=== PATIENT | female | born 1975 | race Caucasian/White ===

== ENCOUNTER 2018-05-20 13:12 | Emergency (ER) | payer OTHER | END 2018-05-20 15:27 | disposition home or self-care (01) | LOC: M ED 13:12 | DX: M54.12 Radiculopathy, cervical region (principal); G43.909 Migraine, unspecified, not intractable, without status migrainosus; F17.200 Nicotine dependence, unspecified, uncomplicated; Z88.5 Allergy status to narcotic agent | CPT/HCPCS: 99283 ==

== ENCOUNTER → 2020-04-20 | Outpatient (CLI) | payer OTHER ==
[~2020-04-20] MED LIST: CYCL-707 PO; E-Z-GAS II EFFERVESCENT PACKET (SODIUM BICARB./CITRIC ACID/SIMETHICONE) As Ordered ONE; E-Z-HD 98% w/w 340GM SUSP BTL As Ordered ONE; E-Z-PAQUE 96% w/w SUSP 176GM BTL As Ordered ONE; IBUP800T OR; IBUP80TA PO; ISOVUE-370 76% 100ML VIAL As Ordered ONE; METH1TAB40 OR; NICO21DI4 TD; No Historical Meds; PERC5TAB12 PO; TRAZODONE PO; TRIL300S PO; ZOFR4TAB14 SL; [UNRECOGNIZED DRUG - OTHER] PO; no home meds; norco PO; zofran odt PO
--- NOTE | 2020-04-20 09:20 | REPVR ---
PROCEDURE INFORMATION: Exam: CT Neck With Contrast Exam date and time: 04/20/2020 8:51 AM Age: 45 years old Clinical indication: Other: Laryngitis; Additional info: Chronic laryngitis, CT first, x-ray second TECHNIQUE: Imaging protocol: Computed tomography images of the neck with intravenous contrast. Radiation optimization: All CT scans at this facility use at least one of these dose optimization techniques: automated exposure control; mA and/or kV adjustment per patient size (includes targeted exams where dose is matched to clinical indication); or iterative reconstruction. Contrast material: Isovue 370; Contrast volume: 75 ml; Contrast route: IV; COMPARISON: No relevant prior studies available. FINDINGS: Nasopharynx: Unremarkable. Dental: Edentulous maxilla and mandible. Oropharynx: Unremarkable. No significant tonsillar enlargement. Hypopharynx: Unremarkable. Larynx: Incidental tiny right internal laryngocele. Mild symmetric bilateral subglottic airway tapering (series 302, image 34). Otherwise unremarkable larynx. Retropharyngeal space: Unremarkable. Submandibular/Parotid glands: Normal. Glands are normal in size. Thyroid: Normal. No enlarged or calcified nodules. Lymph nodes: Unremarkable. No lymphadenopathy. Trachea: Visualized trachea is unremarkable. Lungs: Unremarkable as visualized. Bones/joints: 2.2 metallic density right anterior maxilla. C5-6 degenerative disc disease with moderate spondylosis and mild retrolisthesis. Mild C6-C7 spondylosis. Mild bilateral C3-C4 and left T1-2 primary facet osteoarthritis. Soft tissues: Moderate centrilobular, mild paraseptal emphysema bilaterally. Other findings: Motion blurring is present on multiple images, requiring repetition. IMPRESSION: 1. Mild nonspecific bilateral subglottic edema. 2. Pulmonary emphysema. Electronically signed by: Joey Collins On 04/20/2020 09:19:46 AM
--- NOTE | 2020-04-20 19:12 | REP ---
Esophagram The procedure was performed under the direct supervision of Dr. Hart. The images were reviewed with Dr. Hart. A single view PA chest x-ray is submitted as a transition coach film. The superior mediastinal structures are midline. The heart size is within normal limits. The lungs are clear. Liquid barium and gas producing granules were given in the erect position as well as liquid barium in the prone oblique positions in order to perform a double contrast esophagram examination. The oral and pharyngeal stages of deglutition are unremarkable. Esophageal transport is prompt and efficient and there is no esophagitis, stricture, mucosal ring or hiatal hernia. There is gastroesophageal reflux demonstrated to above the level of the vahe. Impression: There is gastroesophageal reflux demonstrated to above the level of the vahe. Otherwise, unremarkable double contrast esophagram examination. 0.7 minutes of fluoro time was utilized for this procedure. Electronically Signed by JAMES Bae 04/20/2020 04:42 P Electronically Signed by Alex Hart MD 04/20/2020 07:04 P
== END ==
LOC: M RAD 08:09
PROVIDERS: ATTEND Otolaryngology
DX: J37.0 Chronic laryngitis (principal); Q31.3 Laryngocele; J43.9 Emphysema, unspecified; J38.4 Edema of larynx; K21.9 Gastro-esophageal reflux disease without esophagitis
CPT/HCPCS: 70491; 74220; Q9967

== ENCOUNTER → 2020-09-27 | Outpatient (REF) | payer OTHER ==
[~2020-09-27] MED LIST changes: -E-Z-GAS II EFFERVESCENT PACKET (SODIUM BICARB./CITRIC ACID/SIMETHICONE) As Ordered ONE; -E-Z-HD 98% w/w 340GM SUSP BTL As Ordered ONE; -E-Z-PAQUE 96% w/w SUSP 176GM BTL As Ordered ONE; -ISOVUE-370 76% 100ML VIAL As Ordered ONE
== END ==
LOC: M LAB REF 15:57
PROVIDERS: ATTEND Nurse Practitioner Family
DX: R30.0 Dysuria (principal)

== ENCOUNTER → 2021-02-09 | Outpatient (REF) | payer OTHER | LOC: M LAB REF 14:45 | PROVIDERS: ATTEND Physician Assistant | DX: R35.0 Frequency of micturition (principal); R30.0 Dysuria; Z11.3 Encounter for screening for infections with a predominantly sexual mode of transmission ==

== ENCOUNTER → 2021-08-15 | Outpatient (REF) ==
--- NOTE | 2021-08-15 12:21 | REP ---
INDICATION: PAIN COMPARISON: 12/14/2012 TECHNIQUE: AP, lateral, coned-down views of the lumbar spine. FINDINGS: Three views of the lumbosacral spine demonstrate satisfactory alignment and lordosis without acute fracture / compression injury or subluxation. Moderate multilevel degenerative changes include endplate sclerosis with mild disc space narrowing as well as marginal osteophyte formation. Findings most pronounced at L2-3. Multilevel facet hypertrophy also identified. IMPRESSION: 1. No acute fracture / compression injury or subluxation. 2. Mild/moderate multilevel degenerative changes focused at L2-3. <Electronically signed by Bruno Mcintosh > 08/15/21 [id number]
--- NOTE | 2021-08-15 12:32 | REP ---
INDICATION: PAIN COMPARISON: None. TECHNIQUE: AP and frog-lateral views of the right hip FINDINGS: Generalized age-related changes include subtle increased sclerosis to the acetabulum with minimal joint space narrowing. No further overt osteoarthritic or significant degenerative changes are appreciated. No evidence for acute or healed injury. Surrounding soft tissues are normal. IMPRESSION: Mild generalized age-related changes. <Electronically signed by Bruno Mcintosh > 08/15/21 [id number]
== END ==
LOC: M RAD 11:29
PROVIDERS: ATTEND Internal Medicine
DX: G89.29 Other chronic pain (principal)

== ENCOUNTER → 2023-08-25 | Outpatient (REF) | payer OTHER | LOC: M LABWUC 16:21 | PROVIDERS: ATTEND Nurse Practitioner Family | DX: M25.59 Pain in other specified joint (principal) ==

== ENCOUNTER → 2023-09-08 | Outpatient (CLI) | payer OTHER ==
[2023-09-08 17:36] LABS: BASO # 0.1 10^3/uL (0.0-0.2); EOS # 0.3 10^3/uL (0.0-0.5); EOS % 3.1 % (0.0-3.0); HEMATOCRIT 41.7 % (36.0-47.0); HEMOGLOBIN 13.9 g/dl (12.0-15.5); MEAN CORPUSCULAR HGB CONC 33.3 g/dl (32.0-36.5); MEAN CORPUSCULAR VOLUME 95.9 fl (80.0-96.0); MONO # 0.7 10^3/uL (0.0-0.8); MONO % 7.1 % (2.0-8.0); NEUTROPHILS # 6.2 10^3/uL (1.5-8.5); NEUTROPHILS % 59.5 % (36.0-66.0); PLATELET COUNT, AUTOMATED 320 10^3/uL (150-450); RED BLOOD COUNT 4.35 10^6/uL (4.00-5.40); WHITE BLOOD COUNT 10.4 10^3/uL (4.0-10.0)
[2023-09-08 18:09] LABS: ERYTHROCYTE SEDIMENTATION RATE 4 mm/hr (0-20)
[2023-09-08 22:06] LABS: URIC ACID 4.7 MG/DL (3.1-7.8)
[2023-09-08 22:09] LABS: RHEUMATOID FACTOR QUANT < 3.5 IU/ML (<14)
[2023-09-08 22:10] LABS: ALBUMIN 3.8 G/DL (3.2-5.2); ALKALINE PHOSPHATASE 67 U/L (46-116); ALT/SGPT 13 U/L (7.0-40); AST/SGOT 10 U/L (<34); BILIRUBIN,TOTAL 0.5 MG/DL (0.3-1.2); BLOOD UREA NITROGEN 13 MG/DL (9-23); CALCIUM LEVEL 9.1 MG/DL (8.5-10.1); CARBON DIOXIDE LEVEL 28 MMOL/L (20-31); CHLORIDE LEVEL 107 MMOL/L (98-107); GLOMERULAR FILTRATION RATE > 60.0 (>58); GLUCOSE, FASTING 95 MG/DL (60-100); POTASSIUM SERUM 4.5 MMOL/L (3.5-5.1); SODIUM LEVEL 139 MMOL/L (136-145); THYROID STIMULATING HORMONE 1.497 uIU/ML (0.55-4.78); TOTAL 25(OH) VITAMIN D 31.6 NG/ML (20.0-100.0)
== END ==
LOC: M WUC 12:33
PROVIDERS: ATTEND Family Medicine
DX: Z00.00 Encounter for general adult medical examination without abnormal findings (principal); M50.20 Other cervical disc displacement, unspecified cervical region; M47.812 Spondylosis without myelopathy or radiculopathy, cervical region; M51.34 Other intervertebral disc degeneration, thoracic region; M54.16 Radiculopathy, lumbar region; M47.897 Other spondylosis, lumbosacral region; R20.2 Paresthesia of skin; M47.896 Other spondylosis, lumbar region

== ENCOUNTER → 2024-12-02 | Outpatient (CLI) | payer OTHER ==
[~2024-12-02] MED LIST changes: +BC F1POW2 PO
== END ==
LOC: M WUC 14:39
PROVIDERS: ATTEND Student in an Organized Health Care Education/Training Program
DX: R06.02 Shortness of breath (principal)

== ENCOUNTER 2024-12-03 11:39 | Inpatient (IN) | payer OTHER ==
[~2024-12-03] VITALS: Ht 177.8 cm; Wt 59.2 kg
[~2024-12-03 11:39] MED LIST changes: -BC F1POW2 PO
[2024-12-03 13:01] LABS: VENOUS BASE EXCESS -1.9 (-2.0-2.0); VENOUS HCO3 23.7 MMOL/L (23.0-27.0); VENOUS O2 SATURATION 84.1 % (60.0-80.0); VENOUS PARTIAL PRESSURE CO2 43.5 mmHg (38.0-50.0); VENOUS PARTIAL PRESSURE O2 48.6 mmHg (30.0-50.0); VENOUS PH 7.355 UNITS (7.330-7.430); VENOUS STANDARD HCO3 22.6 MMOL/L; VENOUS TOTAL CO2 25.1 MMOL/L (24.0-28.0)
[2024-12-03 13:12] LABS: BASO % 0.6 % (0.0-1.0); EOS % 0.2 % (0.0-3.0); HEMATOCRIT 44.3 % (36.0-47.0); HEMOGLOBIN 15.4 g/dl (12.0-15.5); LYMPH # 1.2 10^3/uL (1.5-5.0); LYMPH % 22.1 % (24.0-44.0); MEAN CORPUSCULAR HEMOGLOBIN 31.6 pg (27.0-33.0); MEAN CORPUSCULAR HGB CONC 34.8 g/dl (32.0-36.5); MEAN CORPUSCULAR VOLUME 90.8 fl (80.0-96.0); MONO # 0.5 10^3/uL (0.0-0.8); MONO % 9.4 % (2.0-8.0); NEUTROPHILS # 3.7 10^3/uL (1.5-8.5); NEUTROPHILS % 67.3 % (36.0-66.0); PLATELET COUNT, AUTOMATED 145 10^3/uL (150-450); RED BLOOD COUNT 4.88 10^6/uL (4.00-5.40); WHITE BLOOD COUNT 5.4 10^3/uL (4.0-10.0)
[2024-12-03 13:36] LABS: ALBUMIN 3.7 G/DL (3.2-5.2); ALKALINE PHOSPHATASE 64 U/L (35-104); ALT/SGPT 49 U/L (7.0-40); AST/SGOT 50 U/L (<34); BILIRUBIN,DIRECT < 0.1 MG/DL (<0.4); BILIRUBIN,TOTAL 0.2 MG/DL (0.3-1.2); BLOOD UREA NITROGEN 13 MG/DL (9-23); CALCIUM LEVEL 9.3 MG/DL (8.5-10.1); CARBON DIOXIDE LEVEL 25 MMOL/L (20-31); CHLORIDE LEVEL 103 MMOL/L (98-107); CREATININE FOR GFR 0.81 MG/DL (0.55-1.30); GLOMERULAR FILTRATION RATE > 60.0 (>51); GLUCOSE, FASTING 87 MG/DL (60-100); POTASSIUM SERUM 3.9 MMOL/L (3.5-5.1); SODIUM LEVEL 137 MMOL/L (136-145); TOTAL PROTEIN 6.8 G/DL (5.7-8.2)
[2024-12-03 20:06] LABS: D-DIMER QUANT 0.82 ug/mL (<0.5); INR 0.92; PARTIAL THROMBOPLASTIN TIME 33.4 SECONDS (24.8-34.2); PROTHROMBIN TIME 12.7 SECONDS (12.5-14.5)
[2024-12-03] MEDS ORDERED: ISOVUE-370 76% 100ML VIAL As Ordered ONE (20:56)
[2024-12-03] MEDS: dexAMETHasone 20MG/5ML VIAL IV ONE (23:57)
[2024-12-03] MEDS: DOXYCYCLINE HYCLATE 100 MG in DEXTROSE 5% (D5W) MINI-BAG PLU 100 ML IV ONE (23:57)
[2024-12-03] MEDS: IPRATROPIUM 0.5MG/ALBUTEROL 2.5MG INH SOL UD 3ML (DUONEB) NEB ONE (23:57)
[2024-12-04] MEDS ORDERED: BC F1POW2 PO (01:12)
[2024-12-04] MEDS ORDERED: HOME MED LIST COMPLETE! XX SCH (01:15)
[2024-12-04 02:10] VITALS: BP 137/87; TEMP 97.9; O2SAT 92
[2024-12-04 03:13] VITALS: O2SAT 92
[2024-12-04 04:18] VITALS: BP 104/83; TEMP 97.5; O2SAT 90
[2024-12-04 05:11] LABS: HEMOGLOBIN 15.3 g/dl (12.0-15.5); MEAN CORPUSCULAR HEMOGLOBIN 30.5 pg (27.0-33.0); MEAN CORPUSCULAR VOLUME 89.6 fl (80.0-96.0); PLATELET COUNT, AUTOMATED 125 10^3/uL (150-450); RED BLOOD COUNT 5.02 10^6/uL (4.00-5.40); WHITE BLOOD COUNT 2.8 10^3/uL (4.0-10.0)
[2024-12-04] MEDS: cefTRIAXone SOD 1 GM in DEXTROSE 5% (D5W) ADV/MINI-BAG 50 ML IV SCH (05:22)
[2024-12-04 05:34] LABS: ALBUMIN 3.6 G/DL (3.2-5.2); ALKALINE PHOSPHATASE 63 U/L (35-104); ALT/SGPT 73 U/L (7.0-40); AST/SGOT 68 U/L (<34); BILIRUBIN,TOTAL 0.2 MG/DL (0.3-1.2); BLOOD UREA NITROGEN 11 MG/DL (9-23); CALCIUM LEVEL 9.3 MG/DL (8.5-10.1); CARBON DIOXIDE LEVEL 28 MMOL/L (20-31); CHLORIDE LEVEL 103 MMOL/L (98-107); CREATININE FOR GFR 0.67 MG/DL (0.55-1.30); GLOMERULAR FILTRATION RATE > 60.0 (>51); GLUCOSE, FASTING 154 MG/DL (60-100); MAGNESIUM LEVEL 1.9 MG/DL (1.8-2.4); POTASSIUM SERUM 4.2 MMOL/L (3.5-5.1); SODIUM LEVEL 138 MMOL/L (136-145); TOTAL PROTEIN 6.7 G/DL (5.7-8.2)
[2024-12-04] MEDS: ACETAMINOPHEN 325 MG TAB PO PRN (06:08)
[2024-12-04 06:18] LABS: PROCALCITONIN 0.05 ng/ml
[2024-12-04] MEDS: IPRATROPIUM 0.5MG/ALBUTEROL 2.5MG INH SOL UD 3ML (DUONEB) NEB SCH (07:46)
[2024-12-04] MEDS: ENOXAPARIN 30MG/0.3ML SYRINGE (J1650 PER 10MG) SC SCH (08:02)
[2024-12-04] MEDS: predniSONE 20 MG TAB PO SCH (08:02)
[2024-12-04] MEDS: PANTOPRAZOLE 40MG TAB (PROTONIX) PO SCH (08:02)
[2024-12-04] MEDS: DOXYCYCLINE HYCLATE 100MG TABLET PO SCH (08:02)
[2024-12-04 09:21] VITALS: O2SAT 89
[2024-12-04] MEDS ORDERED: ADVA1AER9 INH (10:05)
[2024-12-04] MEDS ORDERED: DOXY100T PO (10:05)
[2024-12-04] MEDS ORDERED: PRED20TA PO (10:05)
[2024-12-04] MEDS ORDERED: PANT40TA29 PO (10:05)
[2024-12-04] MEDS ORDERED: VENTAER INH (10:08)
[2024-12-04] MEDS ORDERED: SPIR12.9 INH (10:08)
[2024-12-04 11:35] VITALS: BP 124/68; TEMP 97.5; O2SAT 92
== END 2024-12-04 12:12 | disposition home or self-care (01) | DRG 140 ==
LOC: M ED 11:39 → M ED INP 23:39 → M MSPAV 12-04 02:08
PROVIDERS: ADMIT Family Medicine; ATTEND Student in an Organized Health Care Education/Training Program
DX: J44.1 Chronic obstructive pulmonary disease with (acute) exacerbation (principal); J18.9 Pneumonia, unspecified organism; J47.9 Bronchiectasis, uncomplicated; F41.9 Anxiety disorder, unspecified; G89.29 Other chronic pain; Z79.82 Long term (current) use of aspirin; Z79.52 Long term (current) use of systemic steroids; Z79.899 Other long term (current) drug therapy; Z88.8 Allergy status to other drugs, medicaments and biological substances; J21.9 Acute bronchiolitis, unspecified; J44.0 Chronic obstructive pulmonary disease with (acute) lower respiratory infection; R91.1 Solitary pulmonary nodule; R09.02 Hypoxemia; F17.200 Nicotine dependence, unspecified, uncomplicated

== ENCOUNTER → 2025-06-09 | Outpatient (CLI) | payer OTHER ==
[~2025-06-09] MED LIST changes: +ADVA1AER9 INH; +BC F1POW2 PO; +DOXY100T PO; +PANT40TA29 PO; +PRED20TA PO; +SPIR12.9 INH; +VENTAER INH
== END ==
LOC: M RAD 11:51
PROVIDERS: ATTEND Physician Assistant Medical
DX: J43.2 Centrilobular emphysema (principal); J84.10 Pulmonary fibrosis, unspecified